=== PATIENT | male | born 1950 | race Caucasian/White ===

== ENCOUNTER 2017-04-29 06:26 | Day surgery (SDC) | payer BC ==
--- NOTE | ~2017-04-29 | OP ---
PATIENT NAME: FEMI MÁRQUEZ MEDICAL RECORD: [id number] LOCATION:[facility] ADMISSION DATE: SURGEON: LESLY POLANCO MD DATE OF OPERATION: 04/29/2017 PREOPERATIVE DIAGNOSIS: Trigger finger of the left fourth finger. POSTOPERATIVE DIAGNOSIS: Trigger finger of the left fourth finger. PROCEDURE: Left fourth finger A1 jerzy release. SURGEON: Lesly Polanco MD ANESTHESIA: General. INTRAOPERATIVE COMPLICATIONS: None. SUMMARY OF PATHOLOGIC FINDINGS: The patient did have triggering mechanism with some excoriation of the flexor tendon, however, no complete tearing was noted. OPERATIVE SUMMARY IN DETAIL: After obtaining the appropriate preoperative orthopedic consent as well as anesthetic consultation, evaluation, and clearance, the patient was brought to the operating room and under local anesthesia only, the patient's left upper extremity was prepped and draped in routine sterile fashion. The area was locally anesthetized. After it was given time to set up, an incision was made, taken down the level of the A1 jerzy, which was identified in its entirety and excised for smooth excursion, as the patient was awake, he did go through excursion and there was no further triggering. The wound was irrigated and closed with 4-0 Prolene. Sterile dressings were applied. The patient was awakened and taken back to outpatient in stable condition. All final needle and sponge counts were correct. TRANSINT:[id number] Voice Confirmation ID: [id number] DOCUMENT ID: [id number] LESLY POLANCO MD at 0941 CC: [id number] DICTATION DATE: 05/09/17 1527 [employer]MM[employer]ATION [employer] SPECIALIST: 05/09/17 1949 [facility] 04/29/[address] [facility] [address] [place] [address]
[~2017-04-29 06:26] MED LIST: ACETAMINOPHEN500 M1 PO; IBUPROFEN200 MG PO
[2017-04-29 08:37] VITALS: BP 123/70; BMI 30.4
[2017-04-29] MEDS ORDERED: HYDROCODONE-APA1 TAB PO (11:41)
== END 2017-04-29 12:50 | disposition home or self-care (01) ==
LOC: D.OPS 06:26 → D.PAN 11:30 → D.OPS 11:30 → D.PAN 12:15 → D.OPS 12:50
DX: M65.342 Trigger finger, left ring finger (principal); M79.671 Pain in right foot; R01.1 Cardiac murmur, unspecified; Z01.812 Encounter for preprocedural laboratory examination